=== PATIENT | male | born 1960 | race Caucasian/White ===

== ENCOUNTER 2018-04-12 09:00 | Emergency (ER) | payer OTHER ==
[2018-04-12 09:12] VITALS: TEMP 98.4; BMI 26.6
--- NOTE | 2018-04-12 10:05 | PDOC ---
History of Present Illness - General Chief Complaint: Injury Stated Complaint: INJURY Time Seen by Provider: 04/12/18 09:25 History Source: Patient Past History - Past Medical History Allergies/Adverse Reactions: Allergies Allergy/AdvReac Type Severity Reaction Status Date / Time No Known Allergies Allergy Verified 04/12/18 09:07 Home Medications: Ambulatory Orders Oxycodone HCl/Acetaminophen [Percocet 5-325 mg Tablet] 1 - 2 tab PO Q6H PRN #12 tab MDD 4 04/12/18 COPD: No Psychiatric Problems: No Other medical history: DENIES. - Suicide/Smoking/Psychosocial Hx Smoking History: Never smoked *Physical Exam - Vital Signs Last Vital Signs Temp Pulse Resp BP Pulse Ox 98.4 F 66 19 154/89 99 04/12/18 09:07 04/12/18 09:07 04/12/18 09:07 04/12/18 09:07 04/12/18 09:07 ED Treatment Course - Medications Given in the ED: ED Medications Discontinued Medications Generic Name Dose Route Start Last Admin Trade Name Freq PRN Reason Stop Dose Admin Oxycodone/Acetaminophen 1 combo 04/12/18 09:32 04/12/18 09:56 Percocet 5/325 - PO 04/12/18 09:33 1 combo ONCE ONE Administration *DC/Admit/Observation/Transfer Diagnosis at time of Disposition: AC separation Qualifiers: Encounter type: initial encounter Laterality: right Qualified Code(s): S43.101A - Unspecified dislocation of right acromioclavicular joint, initial encounter - Discharge Dispostion Disposition: HOME Condition at time of disposition: Good Decision to Admit order: No - Prescriptions Prescriptions: Oxycodone HCl/Acetaminophen [Percocet 5-325 mg Tablet] 1 - 2 tab PO Q6H PRN #12 tab MDD 4 PRN Reason: Pain - Referrals Referrals: Zaheer Rodriges MD [Primary Care Provider] - Juan José Rojas MD [Staff Physician] - - Patient Instructions Printed Discharge Instructions: DI for AC Joint Separation, DI for AC Joint Separation Repair Additional Instructions: At this time I recommend applying ice to the affected area for the next 72 hours to decrease swelling. Please take Percocet and or Motrin to alleviate pain and inflammation. Please also follow up with orthopedist and wear sling as demonstrated here in the ER during the day. If you develop any tingling numbness or skin discoloration to the hand, please return to the ED sooner. - Post Discharge Activity
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
[2018-04-12 11:40] VITALS: BP 136/97; PULSE 65
== END 2018-04-12 11:40 | disposition home or self-care (01) ==
LOC: JERFT 09:00
DX: S43.101A Unspecified dislocation of right acromioclavicular joint, initial encounter (principal); V18.0XXA Pedal cycle driver injured in noncollision transport accident in nontraffic accident, initial encounter; Y93.89 Activity, other specified; Y92.410 Unspecified street and highway as the place of occurrence of the external cause
CPT/HCPCS: 73000-TC-RT-FY; 73010-TC-FY; 73030-TC-RT-FY; 99283-25